=== PATIENT | male | born 1975 | race Caucasian/White ===

== ENCOUNTER 2018-02-22 07:26 | Emergency (ER) | payer BC ==
[~2018-02-22] VITALS: Ht 167.6 cm; Wt 68.0 kg
[2018-02-22 07:26] VITALS: BP 126/66
== END 2018-02-22 08:12 | disposition home or self-care (01) ==
LOC: ER 07:30
DX: A08.4 Viral intestinal infection, unspecified (principal); Z90.89 Acquired absence of other organs
CPT/HCPCS: 99283; A4606; Z7610

== ENCOUNTER 2023-12-06 11:19 | Emergency (ER) | payer BC ==
[~2023-12-06] VITALS: Ht 167.6 cm; Wt 70.3 kg
[2023-12-06] MEDS ORDERED: IBUP-1955 PO (12:01)
[2023-12-06] MEDS ORDERED: KETOROLAC TROMETHAMINE 15 MG/ML VIAL ONE (12:17)
[2023-12-06] MEDS ORDERED: KETOROLAC TROMETHAMINE 15 MG/ML VIAL IV ONE (12:30)
[2023-12-06 13:19] LABS: HEMATOCRIT 42 % (39-51); HEMOGLOBIN 14.2 g/dL (13.5-17.5); LYMPHOCYTES # (AUTO) 1.1 K/uL (0.8-4.8); LYMPHOCYTES % (AUTO) 32.6 % (20.0-44.0); MEAN CORPUSCULAR HEMOGLOBIN 34 PG (26.0-33.0); MEAN CORPUSCULAR HGB CONC 34 g/dl (31.0-36.0); MEAN CORPUSCULAR VOLUME 99 fL (80-96); MONOCYTES # (AUTO) 0.4 K/uL (0.1-1.30); MONOCYTES % (AUTO) 12.4 % (2.0-12.0); NEUTROPHILS # (AUTO) 1.8 K/uL (1.8-8.9); PLATELET COUNT (AUTO) 299 K/uL (150-450); RED BLOOD CELL COUNT(AUTO) 4.23 MIL/uL (4.5-6.0); RED CELL DISTRIBUTION WIDTH 12.8 % (11.5-15.0); WHITE BLOOD COUNT (AUTO) 3.5 K/uL (4.3-11.0)
[2023-12-06 14:06] LABS: CALCIUM, SERUM 9.2 mg/dL (8.5-10.1); CARBON DIOXIDE 27 mmol/L (21-32); CHLORIDE 104 mmol/L (98-107); GLUCOSE 95 mg/dL (74-106); SODIUM SERUM 138 mmol/L (136-145); UREA NITROGEN, BLOOD 25 mg/dL (7-18)
[2023-12-06 16:09] VITALS: BP 137/80; TEMP 98; O2SAT 98
== END 2023-12-06 16:15 | disposition home or self-care (01) ==
LOC: ER 11:25
DX: R07.89 Other chest pain (principal); E78.5 Hyperlipidemia, unspecified; Z79.899 Other long term (current) drug therapy; Z98.890 Other specified postprocedural states
CPT/HCPCS: 99285; 96374; 71045; 93005 ×2; 85025; 80048; 36415; 84484 ×2; J1885